=== PATIENT | female | born 1970 | race Caucasian/White ===

== ENCOUNTER → 2016-03-28 | Outpatient (CLI) | payer OTHER ==
--- NOTE | 2016-03-28 09:58 | DIAGNOSTIC IMAGING REPORT ---
PROCEDURE: XR SACRUM AND COCCYX INDICATION: BACK PX TECHNIQUE: Three views. COMPARISON: None. FINDINGS: Osseous structures are normal. No evidence of fracture. There is sclerosis and disc space narrowing involving the right hip. IMPRESSION: 1. Normal sacrum and coccyx. Osteoarthritis right hip.
== END ==
LOC: XR SRH 09:18
DX: M54.9 Dorsalgia, unspecified (principal)